=== PATIENT | female | born 1950 | race Caucasian/White ===

== ENCOUNTER 2022-11-02 12:57 | Emergency (ER) | payer OTHER, MEDICARE, SELFPAY ==
[2022-11-02 13:12] VITALS: BP 114/80; PULSE 73; RESP 20; TEMP 37.1; O2SAT 99
--- NOTE | 2022-11-02 13:14 | ED.EAR ---
HPI - Ear Problem General Chief complaint: Ear Stated complaint: Ear Pain Source: patient and RN notes reviewed History of Present Illness HPI Narrative: 72-year-old female presents to urgent care with complaints of right ear pain x2 days. Patient states today when she swallows she can feel a ?take? in the right side of her throat. Patient denies any congestion, fevers, chills, chest pain, shortness of breath, cough, vomiting, or diarrhea. Patient states she has a big event this upcoming Sunday and wanted to make sure she would need treatment. Some parts of this dictation were generated by voice recognition software and may contain typographical and/or grammatical inaccuracies. Related Data Allergies Allergy/AdvReac Type Severity Reaction Status Date / Time Sulfa (Sulfonamide Allergy Rash Verified 11/02/22 13:13 Antibiotics) acetaminophen [From Percocet] AdvReac Hallucinati Verified 11/02/22 13:14 ng oxycodone [From Percocet] AdvReac Hallucinati Verified 11/02/22 13:14 ng Review of Systems Review of Systems: CONSTITUTIONAL: Denies fever, chills, or sweats. EYES: Denies visual changes, redness, or discharge. ENT: Denies otalgia and sore throat CARDIOVASCULAR: Denies chest pain, palpitations, or edema. RESPIRATORY: Denies cough or dyspnea. GASTROINTESTINAL: Denies abdominal pain, nausea, vomiting, or diarrhea. GENITOURINARY: Denies dysuria or hematuria. SKIN: Denies rash or itching. MUSCULOSKELETAL: Denies back pain, joint pain, or myalgia. PMFSH Comments At the time of my signature, I reviewed and agree with the nursing past medical, surgical, social, and family history. There is no relevant family history pertinent to the patient complaint. Exam Narrative: GENERAL: This is a well-nourished, well-developed patient, in no apparent distress. HEAD: normocephalic, atraumatic. EYES: PERRL. Sclera clear/white. Vision is grossly intact. EARS: External ears normal, auditory canals clear and without drainage, TMs normal without perforation. Hearing grossly intact. NOSE: External nose normal with no obvious nasal discharge, nares without redness, no rhinorrhea. THROAT: Mucous membranes moist, posterior pharynx clear. NECK: Neck supple, non-tender without lymphadenopathy, masses or thyromegaly. CARDIOVASCULAR: Regular rate and rhythm without murmurs, gallops, or rubs. RESPIRATORY: Clear to auscultation. Breath sounds equal bilaterally. No wheezes, rales, or rhonchi. GASTROINTESTINAL: Abdomen soft, non-tender, nondistended. Bowel sounds are active. No hepato-splenomegaly, or palpable masses. No guarding. SKIN: warm, intact with no suspicious lesions or rash, good texture and turgor. NEURO: awake, alert, and oriented to person, place and time. There were no obvious focal neurologic abnormalities. Course Course Level of Care: Express Care Visit Vital Signs Vital signs: Vital Signs Temperature 98.7 F 11/02/22 13:12 Pulse Rate 73 11/02/22 13:12 Respiratory Rate 20 11/02/22 13:12 Blood Pressure 114/80 11/02/22 13:12 Pulse Oximetry 99 11/02/22 13:12 Oxygen Delivery Room Air 11/02/22 13:12 Temperature 98.7 F 11/02/22 13:12 Pulse Rate 73 11/02/22 13:12 Respiratory Rate 20 11/02/22 13:12 Blood Pressure 114/80 11/02/22 13:12 Pulse Oximetry 99 11/02/22 13:12 Oxygen Delivery Room Air 11/02/22 13:12 Reviewed. Medical Decision Making MDM Narrative Medical decision making narrative: Drink plenty of fluids at home. Increase your Vitamin C. 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 Differential Diagnosis Differential Diagnosis: Otitis media, otitis externa, sinusitis, pharyngitis, URI Vital Signs Vital Signs: Vital Signs Temperature 98.7 F 11/02/22 13:12 Pulse Rate 73 11/02/22 13:12 Respiratory Rate 20 11/02/22 13:12 Blood Pressure 114/80 11/02/22 13:12 Pulse Oximetry 99 11/02/22 13:12 Oxygen Delivery Room Air
== END 2022-11-02 13:30 | disposition home or self-care (01) ==
PROVIDERS: Emergency Provider Nurse Practitioner Family; PCP Emergency Medicine
DX: Z71.1 Person with feared health complaint in whom no diagnosis is made (principal)
CPT/HCPCS: 99211; G0463